=== PATIENT | female | born 1985 | race Caucasian/White ===

== ENCOUNTER 2016-08-05 05:29 | Inpatient (IN) | payer OTHER ==
[~2016-08-05] VITALS: Ht 162.6 cm; Wt 77.7 kg
[2016-08-05] VITALS (21 sets, daily range): BP systolic 91–142; BP diastolic 51–62; PULSE 56–99; TEMP 97.5–98.2
[2016-08-05 06:22] LABS: BASO % 0.2 % (0.0-2.0); EOS % 0.1 % (0-4.0); GRAN # 9.6 (1.4-6.5); GRAN % 84.3 % (42.2-75.2); HEMATOCRIT 33.7 % (37.0-47.0); HEMOGLOBIN 11.5 g/dl (12.5-16.0); LYMPH # 1.3 (1.2-3.4); MEAN CELL VOLUME 86 fl (80.0-100.0); MEAN CORPUSCULAR HEMOGLOBIN 29 pg (27.0-31.0); MEAN CORPUSCULAR HGB CONC 34 g/dl (33.0-37.0); MEAN PLATELET VOLUME 10.9 fl (7.4-10.4); MONO # 0.5 (0.1-0.6); PLATELET COUNT 162 K/mm3 (130-400); RED BLOOD COUNT 3.91 M/mm3 (4.10-5.30); REDCELL DISTRIBUTION WIDTH-CV 12.6 % (11.5-14.5); WHITE BLOOD COUNT 11.4 K/mm3 (4.8-10.8)
[2016-08-06 03:40] VITALS: BP 93/47; PULSE 67; TEMP 97.7
[2016-08-06 09:30] VITALS: BP 102/62; PULSE 75; TEMP 97.5
[2016-08-06] MEDS ORDERED: IBU800 M1 PO (10:41)
== END 2016-08-06 14:10 | disposition home or self-care (01) | DRG 775 ==
LOC: LDRO 05:29 → LDR 05:50 → OB 12:50
PROVIDERS: Obstetrics & Gynecology
PROC: 10E0XZZ Delivery of Products of Conception, External Approach (ICD-10-PCS; principal; 2016-08-05)
DX: O48.0 Post-term pregnancy (principal); O34.211 Maternal care for low transverse scar from previous cesarean delivery; N85.8 Other specified noninflammatory disorders of uterus; Z3A.40 40 weeks gestation of pregnancy; Z37.0 Single live birth
CPT/HCPCS: J2590; J7120